=== PATIENT | male | born 1970 | race Caucasian/White ===

== ENCOUNTER 2020-11-14 06:24 | Outpatient (CLI) | payer MEDICAID | END 2020-11-14 06:25 | disposition critical access hospital (66) | LOC: EMS 06:24 | DX: R06.02 Shortness of breath (principal); R07.1 Chest pain on breathing | CPT/HCPCS: A0425; A0429 ==

== ENCOUNTER 2020-11-14 06:52 | Inpatient (IN) | payer MEDICAID ==
--- NOTE | 2020-11-14 07:29 | ED Physician Documentation ---
PD HPI DYSPNEA - Stated complaint Stated Complaint: SOA - Chief complaint Chief Complaint: Resp - History obtained from History obtained from: Patient - History of Present Illness Timing - onset: Enter time (1400), Yesterday Timing - onset during: Rest Timing - duration: Days (1) Timing - details: Gradual onset, Still present Inciting event(s): No: Out of meds, URI Improved by: O2 Worsened by: Exertion, Coughing Associated symptoms: Chest pain / discomfort. No: Fever, Cough, Hemoptysis, Wheezing, Palpitations, Diaphoresis, Bilateral edema, Unilateral edema Similar symptoms before: Diagnosis (panic attack) Recently seen: Not recently seen - Additional information Additional information: Previously well 50-year-old male was taken a nap yesterday when he woke up 2:00 in the afternoon he had some pain under his left scapula and he felt like may be a pinched nerve in his back. He noted he had some difficulty getting a breath. He has developed some radiation of the pain up into his neck and jaw and left shoulder and he has exertional dyspnea. He denies any recent confinement or prolonged travel or recent illness. He is a former smoker.Denies any wheezing or recent upper respiratory tract infection. Had first dose of Moderna 2 weeks ago. Review of Systems Constitutional: denies: Fever Eyes: denies: Decreased vision Ears: denies: Ear pain Nose: denies: Rhinorrhea / runny nose, Congestion Throat: reports: Dental pain / toothache Cardiac: reports: Chest pain / pressure. denies: Palpitations, Pedal edema Respiratory: reports: Dyspnea. denies: Cough, Hemoptysis, Wheezing GI: reports: Nausea (morning). denies: Abdominal Pain, Vomiting, Constipation, Diarrhea : denies: Dysuria, Frequency Skin: denies: Rash Musculoskeletal: reports: Neck pain, Back pain. denies: Extremity pain Neurologic: denies: Generalized weakness, Focal weakness, Numbness PD PAST MEDICAL HISTORY - Present Medications Home Medications: Ambulatory Orders Medication Instructions Recorded Confirmed No Known Home Medications 11/14/20 11/14/20 - Allergies Allergies/Adverse Reactions: Allergies Allergy/AdvReac Type Severity Reaction Status Date / Time No Known Drug Allergies Allergy Verified 11/14/20 06:56 PD ED PE NORMAL - Vitals Vital signs reviewed: Yes (hypertensive ) - General General: Alert and oriented X 3, No acute distress, Well developed/nourished - HEENT HEENT: Atraumatic, PERRL, EOMI - Neck Neck: Supple, no meningeal sign, No bony TTP - Cardiac Cardiac: RRR, No murmur - Respiratory Respiratory: No respiratory distress, Other (diminished breath sounds on left only compared to the right. 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, No motor deficit, No sensory deficit, Normal speech Eye Opening: Spontaneous Motor: Obeys Commands Verbal: Oriented GCS Score: 15 - Psych Psych: Normal mood, Normal affect Results - Vitals Vitals: Vital Signs - 24 hr 11/14/20 11/14/20 11/14/20 06:56 07:04 07:45 Temperature 36.6 C 36.7 C Heart Rate 100 106 H 101 H Respiratory 20 12 26 H Rate Blood Pressure 124/102 H 137/95 H O2 Saturation 100 97 100 11/14/20 11/14/20 11/14/20 08:01 08:30 09:00 Temperature Heart Rate 106 H 105 H 101 H Respiratory 13 13 11 L Rate Blood Pressure 151/108 H 151/123 H 159/111 H O2 Saturation 100 96 99 11/14/20 09:37 Temperature Heart Rate 111 H Respiratory 15 Rate Blood Pressure 132/107 H O2 Saturation 98 Oxygen O2 Source Nasal cannula Oxygen Flow Rate 2 - EKG (time done) 0709 Rate: Rate (enter#) (98) Rhythm: LAE, CONNIE Ischemia: ST elevation c/w repol (isolated to V3) Compare to prior EKG: Old EKG unavailable Computer interpretation: Agree with computer - Labs Labs: Laboratory Tests 11/14/20 11/14/20 11/14/20 07:16 07:16 07:16 WBC 12.1 H RBC 6.02 Hgb 16.5 Hct 50.3 MCV 83.6 MCH 27.4 MCHC 32.8 RDW 13.0 Plt Count 243 MPV 9.6 Neut # (Auto) 9.9 H Lymph # (Auto) 1.2 L Sibley # (Auto) 0.7 Eos # (Auto) 0.1 Baso # (Auto) 0.1 Absolute Nucleated RBC 0.00 Nucleated RBC % 0.0 D-Dimer 212.1 Sodium 136 Potassium 3.9 Chloride 105 Carbon Dioxide 23 Anion Gap 8.0 BUN 9 Creatinine 0.9 Estimated GFR (MDRD) 90 Glucose 125 H Calcium 9.3 Total Bilirubin 1.1 H AST 17 ALT 17 Alkaline Phosphatase 80 Troponin I High Sens Total Protein 7.2 Albumin 4.4 Globulin 2.8 Albumin/Globulin Ratio 1.6 Lipase 122 H Nasal Adenovirus (PCR) Nasal B. parapertussis DNA (PCR) Nasal Coronavir 229E PCR Nasal Coronavir HKU1 PCR Nasal Coronavir NL63 PCR Nasal Coronavir OC43 PCR Nasal Enterovir/Rhinovir PCR Nasal Influenza B PCR Nasal Influenza A PCR Nasal Parainfluen 1 PCR Nasal Parainfluen 2 PCR Nasal Parainfluen 3 PCR Nasal Parainfluen 4 PCR Nasal RSV (PCR) Nasal B.pertussis DNA PCR Nasal C.pneumoniae (PCR) Boy Human Metapneumo PCR Nasal M.pneumoniae (PCR) Nasal SARS-CoV-2 (PCR) 11/14/20 11/14/20 07:16 07:31 WBC RBC Hgb Hct MCV MCH MCHC RDW Plt Count MPV Neut # (Auto) Lymph # (Auto) Sibley # (Auto) Eos # (Auto) Baso # (Auto) Absolute Nucleated RBC Nucleated RBC % D-Dimer Sodium Potassium Chloride Carbon Dioxide Anion Gap BUN Creatinine Estimated GFR (MDRD) Glucose Calcium Total Bilirubin AST ALT Alkaline Phosphatase Troponin I High Sens 4.7 Total Protein Albumin Globulin Albumin/Globulin Ratio Lipase Nasal Adenovirus (PCR) NOT DETECTED Nasal B. parapertussis DNA (PCR) NOT DETECTED Nasal Coronavir 229E PCR NOT DETECTED Nasal Coronavir HKU1 PCR NOT DETECTED Nasal Coronavir NL63 PCR NOT DETECTED Nasal Coronavir OC43 PCR NOT DETECTED Nasal Enterovir/Rhinovir PCR NOT DETECTED Nasal Influenza B PCR NOT DETECTED Nasal Influenza A PCR NOT DETECTED Nasal Parainfluen 1 PCR NOT DETECTED Nasal Parainfluen 2 PCR NOT DETECTED Nasal Parainfluen 3 PCR NOT DETECTED Nasal Parainfluen 4 PCR NOT DETECTED Nasal RSV (PCR) NOT DETECTED Nasal B.pertussis DNA PCR NOT DETECTED Nasal C.pneumoniae (PCR) NOT DETECTED Boy Human Metapneumo PCR NOT DETECTED Nasal M.pneumoniae (PCR) NOT DETECTED Nasal SARS-CoV-2 (PCR) NOT DETECTED - Rads (name of study) chest Radiology: Prelim report reviewed (Impression: Large left-sided pneumothorax with a rightward deviation of the mediastinum concerning for tension pneumothorax.), EMP read indepedently, See rad report Procedures - Bedside sono Bedside sono by EMP: With the use of bedside ultrasound the heart is imaged from the xiphoid and there is a normal four chamber view of the heart, without evidence of pericardial effusion. - IVC sono (time) 0700 Bedside IVC sono: IVC measures (cm) (1.88), Euvolemia PD MEDICAL DECISION MAKING - ED course Complexity details: considered differential, d/w patient ED course: 50-year-old male with acute onset of shortness of breath yesterday has a pneumothorax on the left side and this appears spontaneous. Patient does not otherwise appear ill. Dr. Armenta is consulted in the case and will come to the emergency department to place a chest tube. The patient develops nausea and vomits and is administered IV zofran. His nausea resolves. The patient admits that nausea is his usual response to stress and he does not feel more short of breath or more chest pain associated. His heart rate increased dramatically and I became concerned about tension and a repeat chest was obtained, the patient's symptoms resolved and vitals improved and the chest again demonstrated the pneumo. Departure - Departure Disposition: 66 [facility] DC/Xfer Clinical Impression: Pneumothorax on left Condition: Stable
[2020-11-14 07:38] LABS: ALBUMIN 4.4 g/dL (3.2-5.5); ALBUMIN/GLOBULIN RATIO 1.6 (1.0-2.2); BILIRUBIN,TOTAL 1.1 mg/dL (0.2-1.0); CALCIUM 9.3 mg/dL (8.5-10.3); CREATININE 0.9 mg/dL (0.6-1.2); POTASSIUM 3.9 mmol/L (3.5-5.0); TOTAL PROTEIN 7.2 g/dL (6.7-8.2)
[2020-11-14 07:42] LABS: BASOPHILS # (AUTO) 0.1 10^3/uL (0.0-0.1); BASOPHILS % (AUTO) 0.4 %; EOSINOPHILS # (AUTO) 0.1 10^3/uL (0.0-0.7); EOSINOPHILS % (AUTO) 0.6 %; HCT - HEMATOCRIT 50.3 % (42.0-52.0); HGB - HEMOGLOBIN 16.5 g/dL (14.0-18.0); LYMPHOCYTES # (AUTO) 1.2 10^3/uL (1.5-3.5); LYMPHOCYTES % (AUTO) 10.1 %; MEAN CORPUSCULAR HEMOGLOBIN 27.4 pg (27.0-31.0); MEAN CORPUSCULAR HGB CONC 32.8 g/dL (32.0-36.0); MEAN CORPUSCULAR VOLUME 83.6 fL (80.0-94.0); MEAN PLATELET VOLUME 9.6 fL (7.4-11.4); MONOCYTES # (AUTO) 0.7 10^3/uL (0.0-1.0); MONOCYTES % (AUTO) 5.7 %; NEUTROPHILS # (AUTO) 9.9 10^3/uL (1.5-6.6); NEUTROPHILS % (AUTO) 81.6 %; PLT - PLATELET COUNT 243 10^3/uL (130-450); RED BLOOD COUNT 6.02 10^6/uL (4.70-6.10); WHITE BLOOD COUNT 12.1 x10^3/uL (4.8-10.8)
[2020-11-14] MEDS ORDERED: LORazepam 2 MG/ML VIAL IVP STA (07:49)
--- NOTE | 2020-11-14 08:14 | XRAY Report ---
PROCEDURE: Chest 1 View X-Ray INDICATIONS: chest pain TECHNIQUE: 2 frontal views of the chest were acquired. COMPARISON: None FINDINGS: Surgical changes and devices: Overlying EKG wires. Lungs and pleura: There is a large left-sided pleural effusion with collapse of the left lung. Mediastinum: There is rightward deviation of the mediastinum. Heart size appears within normal limits . Bones and chest wall: No suspicious bony lesions. Overlying soft tissues appear unremarkable. IMPRESSION: Large left-sided pneumothorax with rightward deviation of the mediastinum concerning for tension pneu mothorax. Discussed over the telephone with the ordering provider Dr. Christopher Cox by Dr. Gurwinder Odom at approx imately 0710 hours [place] standard time on 11/14/2020. Reviewed by: Gurwinder Odom DO on 11/14/2020 7:13 AM RUBEN Approved by: Gurwinder Odom DO on 11/14/2020 7:13 AM RUBEN Station ID: [id number]
--- NOTE | 2020-11-14 08:15 | XRAY Report ---
PROCEDURE: Chest 1 View X-Ray INDICATIONS: CHEST PAIN TECHNIQUE: One lateral view of the chest was acquired. COMPARISON: Examination frontal chest radiographs FINDINGS: Surgical changes and devices: Overlying EKG wires Lungs and pleura: Large left-sided pneumothorax is again noted. No additional findings. Mediastinum: Heart size appears within normal limits. Rightward mediastinal shift W. Marielos comparison exam Bones and chest wall: No suspicious bony lesions. Overlying soft tissues appear unremarkable. IMPRESSION: Large left-sided pneumothorax again identified. Reviewed by: Gurwinder Odom DO on 11/14/2020 7:14 AM RUBEN Approved by: Gurwinder Odom DO on 11/14/2020 7:14 AM RUBEN Station ID: [id number]
[2020-11-14 08:53] LABS: B. PARAPERTUSSIS- RESP PCR PAN NOT DETECTED; B. PERTUSSIS- RESP PCR PANEL NOT DETECTED; C. PNEUMONIAE- RESP PCR PANEL NOT DETECTED; CORONAVIRUS 229E-RESP PCR NOT DETECTED; CORONAVIRUS HKU1-RESP PCR NOT DETECTED; CORONAVIRUS NL63-RESP PCR NOT DETECTED; CORONAVIRUS OC43-RESP PCR NOT DETECTED; HUMAN METAPNEUMOVIRUS NOT DETECTED; INFLUENZA A- RESP PCR PANEL NOT DETECTED; INFLUENZA B - RESP PCR PANEL NOT DETECTED; M. PNEUMONIAE- RESP PCR PANEL NOT DETECTED; PARAINFLUENZA VIRUS 1 NOT DETECTED; PARAINFLUENZA VIRUS 2 NOT DETECTED; PARAINFLUENZA VIRUS 3 NOT DETECTED; PARAINFLUENZA VIRUS 4 NOT DETECTED; RHINOVIRUS/ENTEROVIRUS NOT DETECTED; RSV- RESP PCR PANEL NOT DETECTED; SARS-CoV-2 -RESP PCR PANEL NOT DETECTED
[2020-11-14] MEDS ORDERED: ONDANSETRON 4 MG/2 ML VIAL IVP STA (09:10)
[2020-11-14] MEDS ORDERED: BUFFERED LIDOCAINE 10 ML SYRINGE SUBQ STA (09:27)
[2020-11-14] MEDS ORDERED: MIDAZOLAM 2 MG/2 ML VIAL IVP STA (09:27)
[2020-11-14] MEDS ORDERED: HYDROmorphone 1 MG/ML CARPUJECT IVP STA (09:28)
--- NOTE | 2020-11-14 09:48 | XRAY Report ---
PROCEDURE: Chest 1 View X-Ray INDICATIONS: Increased N/V with left Pneumothorax TECHNIQUE: One view of the chest was acquired. COMPARISON: Same day chest radiographs FINDINGS: Surgical changes and devices: None. Lungs and pleura: Large left-sided pneumothorax with near complete collapse of the left lung is again noted. Right lung remains clear. Mediastinum: Unchanged rightward mediastinal shift. Bones and chest wall: No suspicious bony lesions. Overlying soft tissues appear unremarkable. IMPRESSION: Grossly unchanged large left-sided pneumothorax with rightward mediastinal shift suggestive of tensio n etiology. Recommend emergent surgical referral. Reviewed by: Gurwinder Odom DO on 11/14/2020 8:47 AM RUBEN Approved by: Gurwinder Odom DO on 11/14/2020 8:47 AM RUBEN Station ID: [id number]
--- NOTE | 2020-11-14 11:19 | XRAY Report ---
PROCEDURE: Chest for Line Placement INDICATIONS: POST CHEST TUBE PLACEMENT TECHNIQUE: One view of the chest was acquired. COMPARISON: Same day chest radiograph FINDINGS: Surgical changes and devices: Left-sided thoracostomy tube is noted overlying the left upper chest wa ll with the tip adjacent to the superior mediastinum. Lungs and pleura: Interval decrease in size of previously noted left-sided pneumothorax. There is a s mall persistent pneumothorax with the apex measuring approximately 1.6 cm. Linear densities at the mi d and lower left lung likely representing atelectasis. Mediastinum: Mediastinal contours appear normal. Heart size is normal. Mediastinal shift has resol gonzalo. Bones and chest wall: No suspicious bony lesions. Overlying soft tissues appear unremarkable. IMPRESSION: Status post left-sided thoracostomy tube insertion with tip overlying the superior aspect of the medi astinum. Small apical pneumothorax persists. There is interval resolution of previously noted mediast inal shift. Left sided atelectasis. Reviewed by: Gurwinder Odom DO on 11/14/2020 10:17 AM RUBEN Approved by: Gurwinder Odom DO on 11/14/2020 10:17 AM RUBEN Station ID: [id number]
--- NOTE | 2020-11-14 11:24 | SURGERY HX AND PHYSICAL(T) ---
Surgical History & Physical - Chief Complaint/HPI Chief Complaint: Spontaneous pneumothorax left with dyspnea History of Present Illness: 50-year-old male presenting for spontaneous LEFT pneumothorax, symptomatic. Reports having suddenly acute onset shortness of breath at 2 PM yesterday. Has not been able to do anything significant in the interim. Presents to the emergency room for evaluation. No prior episodes. Patient historic smoker however no active tobacco use. No prior chest wall radiation. No recent travel. No recent trauma.. Significant history for multiple cancers including colon cancer in the patient's family history. Notable past surgical history to include none. Patient denies change in bowel function, denies bleeding per rectum, and also denies reflux associated symptoms. Patient does not use tobacco but has used in the past. Patient has a history of alcohol use but denies any associated abuse. He denies CPAP or history of sleep apnea. Denies history of asthma, emphysema, COPD. No history of heart attack or stroke. Patient takes no systemic anticoa gulation. Endoscopic history includes colonoscopy at age 41 for high risk screening. The patient was evaluated by the ER noted for plain film with significant loss of lung volume for which surgical consultation was obtained and requested. - PMH/PSH/Social Hx Smoking Status: Former smoker Does the pt drink ETOH?: Yes Frequency: Occasional Does the pt have substance abuse?: Yes Substance Use and Type: Marijuana - Home Meds and Allergies Home Medications: No Known Home Medications 11/14/20 Allergies/Adverse Reactions: Allergies Allergy/AdvReac Type Severity Reaction Status Date / Time No Known Drug Allergies Allergy Verified 11/14/20 06:56 - Review of Systems Constitutional: Fatigue, Malaise, Weakness Respiratory: Shortness of breath, Cough Gastrointestinal: Nausea - Vital Signs Heart Rate: 92 Blood Pressure: 136/101 Temperature: 36.7 C Respiratory Rate: 21 O2 Saturation: 96 Weight (kg): 80.3 kg Height: 1.8 m - Physical Exam Comments/Other: Patient alert awake and oriented x3 No acute distress resting comfortably in bed Lungs clear to auscultation across right lung jeter; left lung absent any appreciable sounds across the entirety of jeter by auscultation. Radial pulses palpable bilaterally with good capillary refill Abdomen soft nontender nondistended no rebound no guarding Moving all extremities with no sensorimotor deficits Cranial nerves II through XII grossly intact - Patient Review Patient Review: Problems were reviewed with the patient during this visit. Medications were reviewed with the patient during this visit. Allergies were reviewed this patient during this visit. Pertinent Tests Reviewed: All pertitent test for this patient were reviewed. - Assessment & Plan Assessment and Plan: 50-year-old with spontaneous left pneumothorax. Noted on plain film and CT currently not available. Symptomatic. We will proceed with left tube thoracostomy. (1) GI - post procedure will advance diet. GI prophylaxis. Opiate sparing analgesia. (2) SURGERY -proceed with left tube thoracostomy placement. Serial x-rays. (3) Renal/Lytes - continue IVF. Renal indices within normal limits. (4) Respiratory - O2 as necessary. Continue nebulizers. Continue IS. Chest XR. (5) Heme - Will continue with DVT ppx. H/H stable. (6) Cardiovascular - HD acceptable. (7) Neuro - Opiate sparring analgesia. Antispasmodics with Robaxin. Toradol. Neuropathic agents.
[2020-11-14] MEDS ORDERED: METOCLOPRAMIDE 10 MG/2 ML VIAL IVP PRN (11:25)
[2020-11-14] MEDS ORDERED: polyethylene glycoL 3350 17 GM PACKET PO PRN (11:25)
[2020-11-14] MEDS ORDERED: ONDANSETRON 4 MG/2 ML VIAL IVP PRN (11:25)
--- NOTE | 2020-11-14 11:25 | OPERATIVE REPORT ---
Operative Report - General Admit Date: 11/14/20 Procedure Date: 11/14/20 Planned Procedure: Left tube thoracostomy, anterior, placement Intercostal rib block. Pre-Op Diagnosis: Indications: Symptomatic left pneumothorax Procedure Performed: Same Post Op Diagnosis: Same - Procedure Note Primary Surgeon: Kathi Secondary Surgeon: Mason Anesthesia Provider: None Pathology: None Drain/Tube Type: Other (See below) Indications: See H&P Findings: See below. Complications: None - Other Other Information/Narrative: Left tube thoracostomy, anterior, placement Indications: Symptomatic left pneumothorax Complications: none Findings: Successful placement of left tube thoracostomy, with associated resolution by plain chest radiography Estimated blood loss: none Specimens removed: None Anesthesia used: Half a milligram of Dilaudid and a milligram of Versed Drains: other (8 Com[place]an [place]an left tube/pigtail thoracostomy; to pleuravac) Procedure details: 50-year-old male with spontaneous left pneumothorax with significant lung volume loss to nearly 75%. No CT scan available. No significant pre-existing conditions; surgery was called in order for placement of a pigtail. Patient was obtain for informed consent with all questions answered and this is documented in the permanent medical record. Patient was confirmed for a left pneumothorax by x-ray. A timeout was called and agreed to by all of the room. The left chest was prepped and draped in the usual sterile fashion. Patient was reevaluated for imaging and planned for access anteriorly and apically towards avoiding any injury. This area was locally instilled with 1% lidocaine and every block was performed as well. At this time after performing local rib block and entering the thoracic cavity there was aspirated air clearly confirming the pneumothorax. At this time a percutaneous pigtail 8 Comoran kit was used with the introducer needle threaded through the pigtail. This was inserted through the anesthetized tissue and slowly passed above the rib without any complications. The patient had the immediate improvement in respiratory status with decreased dyspnea. Postop procedural Chest CXR was obtained and showed interval improvement in the patient's large left pneumothorax. The chest tube system was secured with two sutures in the manner of a drain stitch after locally anesthetized. Patient tolerated procedure well for which there was no complication I was present for the entirety of this operative intervention. All counts correct. Silk tape was placed to secure along with a mesenteric dressing.
[2020-11-14] MEDS ORDERED: ALBUTEROL NEB 2.5 MG/3 ML INH PRN (11:34)
[2020-11-14] MEDS ORDERED: LACTATED RINGERS 1,000 ML IV SCH (12:00)
[2020-11-14] MEDS: ACETAMINOPHEN 1,000 MG/100 ML 100 ML IV SCH ×2 (13:19→19:58)
[2020-11-14] MEDS: methocarbamoL 500 MG TABLET PO SCH ×2 (13:20→17:34)
[2020-11-14] MEDS: D5NS W/20 MEQ KCL 1,000 ML IV SCH ×2 (13:20→22:08)
[2020-11-14] MEDS: KETOROLAC 30 MG/ML VIAL IVP SCH ×2 (14:22→17:33)
[2020-11-14] MEDS ORDERED: IPRATROPIUM 0.2 MG/ML NEB INH SCH (15:00)
[2020-11-14] MEDS ORDERED: IPRATROPIUM 0.2 MG/ML NEB INH PRN (15:24)
[2020-11-14] MEDS: HYDROmorphone 0.5 MG/0.5 ML SYRINGE IVP PRN (15:30)
[2020-11-14] MEDS: oxyCODONE 5 MG TABLET PO PRN (18:15)
[2020-11-14] MEDS: DOCUSATE SODIUM 100 MG CAPSULE PO SCH (19:58)
[2020-11-14] MEDS: polyethylene glycoL 3350 17 GM PACKET PO SCH (19:58)
[2020-11-15] MEDS: KETOROLAC 30 MG/ML VIAL IVP SCH ×5 (01:52→23:55)
[2020-11-15] MEDS: methocarbamoL 500 MG TABLET PO SCH ×5 (01:53→23:55)
[2020-11-15] MEDS: oxyCODONE 5 MG TABLET PO PRN ×2 (01:53→21:34)
[2020-11-15 05:10] LABS: BASOPHILS % (AUTO) 0.4 %; EOSINOPHILS # (AUTO) 0.1 10^3/uL (0.0-0.7); EOSINOPHILS % (AUTO) 1.7 %; HCT - HEMATOCRIT 43.9 % (42.0-52.0); HGB - HEMOGLOBIN 14.1 g/dL (14.0-18.0); LYMPHOCYTES % (AUTO) 25.7 %; MEAN CORPUSCULAR HEMOGLOBIN 27.1 pg (27.0-31.0); MEAN CORPUSCULAR HGB CONC 32.1 g/dL (32.0-36.0); MEAN CORPUSCULAR VOLUME 84.3 fL (80.0-94.0); MEAN PLATELET VOLUME 9.8 fL (7.4-11.4); MONOCYTES # (AUTO) 0.6 10^3/uL (0.0-1.0); MONOCYTES % (AUTO) 8.2 %; NEUTROPHILS # (AUTO) 4.8 10^3/uL (1.5-6.6); NEUTROPHILS % (AUTO) 63.6 %; PLT - PLATELET COUNT 202 10^3/uL (130-450); RED BLOOD COUNT 5.21 10^6/uL (4.70-6.10); RED CELL DISTRIBUTION WIDTH 12.8 % (12.0-15.0); WHITE BLOOD COUNT 7.6 x10^3/uL (4.8-10.8)
[2020-11-15] MEDS: ACETAMINOPHEN 1,000 MG/100 ML 100 ML IV SCH (05:15)
[2020-11-15 05:21] LABS: ALBUMIN 3.4 g/dL (3.2-5.5); ALBUMIN/GLOBULIN RATIO 1.4 (1.0-2.2); BILIRUBIN,TOTAL 2.1 mg/dL (0.2-1.0); CALCIUM 8.5 mg/dL (8.5-10.3); POTASSIUM 4.5 mmol/L (3.5-5.0); TOTAL PROTEIN 5.9 g/dL (6.7-8.2)
[2020-11-15] MEDS: D5NS W/20 MEQ KCL 1,000 ML IV SCH ×3 (06:19→22:27)
[2020-11-15] MEDS: PANTOPRAZOLE 40 MG TABLET PO SCH (06:20)
[2020-11-15] MEDS ORDERED: IOPAMIDOL-300 100 ML VIAL ONE (07:30)
[2020-11-15] MEDS: polyethylene glycoL 3350 17 GM PACKET PO SCH ×2 (08:31→20:42)
[2020-11-15] MEDS: DOCUSATE SODIUM 100 MG CAPSULE PO SCH ×2 (08:32→20:42)
[2020-11-15] MEDS: ENOXAPARIN 40 MG/0.4 ML SYRINGE SUBQ SCH (08:32)
--- NOTE | 2020-11-15 10:29 | PHARMACY PROGRESS NOTE ---
- Best Possible Medication History Admit Date and Time: 11/14/20 1130 Processed by: Pharmacy Medication History completed: Yes Patient Interview: Completed As the person ultimately responsible for medication therapy, providers are able to order a medication from an existing home medication list in [facility] via the "Reconcile Routine" prior to Confirmation of that medication by business support. Such practice is discouraged except when the physician, in their clinical lulu gment, deems that a medical need exists for a medication without regard to previous use.
[2020-11-15] MEDS ORDERED: IOPAMIDOL-300 100 ML VIAL IVP ONE (11:39)
--- NOTE | 2020-11-15 14:09 | CT Report ---
PROCEDURE: CHEST W INDICATIONS: Pneumothorax CONTRAST: IV CONTRAST: Isovue 300 ml: 100 PO CONTRAST: *NO PO CONTRAST TECHNIQUE: After the administration of intravenous contrast, 5 mm thick sections acquired from the pulmonary api uche to the posterior costophrenic angles. 7 mm thick coronal MIP reformats were acquired. For radia tion dose reduction, the following was used: automated exposure control, adjustment of mA and/or kV according to patient size. COMPARISON: Chest radiographs dated November 14, 2020 FINDINGS: Image quality: Excellent. Lungs and pleura: Moderate to large left-sided pneumothorax is again identified. This is most promine nt at the lung base. Chest tube is noted extending from the superior left chest wall and lies along t he anterior surface of the lung. There is moderate predominantly centrilobular emphysematous changes. There is groundglass opacities noted throughout the left upper lobe with more focal regions inferior ly likely representing atelectasis from partial collapse. Mediastinum: Heart size is normal. No pericardial effusion. No mediastinal or hilar adenopathy by size criteria. Thoracic aorta and central pulmonary arteries are normal in size. Esophagus is christie l in caliber. No hiatal hernia. Bones and chest wall: No suspicious bony lesions. No vertebral body compression fractures. No axil dale or supraclavicular adenopathy by size criteria. Thyroid gland is unremarkable. Abdomen: Visualized upper abdominal solid organs appear normal. Upper abdominal bowel loops are nor mal in caliber. IMPRESSION: Moderate to large left-sided pneumothorax remains status post chest tube insertion. This is most prom inent along the inferior aspect. Moderate predominantly centrilobular emphysematous changes. Groundglass opacities of the left upper lobe with more focal regions of increased opacity likely repr esenting atelectasis from partial collapse. Reexpansion pulmonary edema and infectious processes with in the differential. Reviewed by: Gurwinder Odom DO on 11/15/2020 1:08 PM RUBEN Approved by: Gurwinder Odom DO on 11/15/2020 1:08 PM RUBEN Station ID: [id number]
--- NOTE | 2020-11-15 15:03 | PROVIDER PROGRESS NOTE ---
Progress Note Subjective Hospital day #2 admitted for spontaneous pneumothorax. CT imaging appreciated. See below. Objective Afebrile hemodynamically acceptable General Appearance: positive: No acute distress Eyes Bilateral: positive: Normal inspection ENT: positive: ENT inspection nml Neck: positive: Nml inspection Respiratory: positive: Chest non-tender, No respiratory distress, Breath sounds nml. negative: Wheezes, Rales, Rhonchi Cardiovascular: positive: Regular rate & rhythm Abdomen: positive: No distention, Other. negative: Guarding, Rebound Extremities: positive: Non-tender, Full ROM, Nml appearance Neurologic/Psychiatric: positive: Oriented x3, CN's nml (2-12) Impression CT scan November 15, 2020: 1. Moderate to left large left-sided pneumothorax remains status post chest tube insertion. This most prominent along the inferior aspect. 2. Moderate predominantly centrilobular emphysematous change. 3. Groundglass opacities of the left upper lobe with more focal regions of increased opacity representing atelectasis from partial collapse. Reexpansion p ulmonary edema and infectious process within the differential. Impression/Plan (1) GI - bowel regimen. GI ppx. (2) SURGERY - Status post tube thoracostomy left chest. Persistent pneumothorax while on waterseal. May need chemical and/or mechanical pleurodesis however will proceed with continuous suction and oxygen supplementation to optimize. Daily plain chest radiography. (3) Renal/Lytes - continue IVF. Renal indices stable. Continue to trend. (4) Respiratory - Status post tube thoracostomy left chest. Persistent pneumothorax while on waterseal. May need chemical and/or mechanical pleurodesis however will proceed with continuous suction and oxygen supplementation to optimize. Daily plain chest radiography. Continue IS. Ordered nebulizers. (5) Heme - Will continue with DVT ppx. H/H stable. (6) Cardiovascular - HD acceptable. (7) Neuro - Opiate sparring analgesia. Antispasmodics with Robaxin. (8) PT OT
[2020-11-15] MEDS: HYDROmorphone 0.5 MG/0.5 ML SYRINGE IVP PRN (23:56)
[2020-11-16 05:21] LABS: BASOPHILS % (AUTO) 0.4 %; EOSINOPHILS # (AUTO) 0.2 10^3/uL (0.0-0.7); EOSINOPHILS % (AUTO) 2.6 %; HCT - HEMATOCRIT 42.9 % (42.0-52.0); LYMPHOCYTES % (AUTO) 25.6 %; MEAN CORPUSCULAR HEMOGLOBIN 27.6 pg (27.0-31.0); MEAN CORPUSCULAR HGB CONC 32.6 g/dL (32.0-36.0); MEAN CORPUSCULAR VOLUME 84.6 fL (80.0-94.0); MONOCYTES # (AUTO) 0.5 10^3/uL (0.0-1.0); MONOCYTES % (AUTO) 7.1 %; NEUTROPHILS # (AUTO) 4.9 10^3/uL (1.5-6.6); NEUTROPHILS % (AUTO) 63.9 %; PLT - PLATELET COUNT 184 10^3/uL (130-450); RED BLOOD COUNT 5.07 10^6/uL (4.70-6.10); RED CELL DISTRIBUTION WIDTH 12.8 % (12.0-15.0); WHITE BLOOD COUNT 7.6 x10^3/uL (4.8-10.8)
[2020-11-16 05:37] LABS: ALBUMIN 3.5 g/dL (3.2-5.5); ALBUMIN/GLOBULIN RATIO 1.5 (1.0-2.2); BILIRUBIN,TOTAL 1.7 mg/dL (0.2-1.0); CALCIUM 8.5 mg/dL (8.5-10.3); CREATININE 0.8 mg/dL (0.6-1.2); POTASSIUM 4.3 mmol/L (3.5-5.0); TOTAL PROTEIN 5.9 g/dL (6.7-8.2)
[2020-11-16] MEDS: KETOROLAC 30 MG/ML VIAL IVP SCH ×3 (06:12→17:32)
[2020-11-16] MEDS: methocarbamoL 500 MG TABLET PO SCH ×3 (06:12→17:32)
[2020-11-16] MEDS: PANTOPRAZOLE 40 MG TABLET PO SCH (06:12)
[2020-11-16] MEDS: D5NS W/20 MEQ KCL 1,000 ML IV SCH ×3 (06:16→21:20)
[2020-11-16] MEDS: DOCUSATE SODIUM 100 MG CAPSULE PO SCH ×2 (08:42→20:18)
[2020-11-16] MEDS: ENOXAPARIN 40 MG/0.4 ML SYRINGE SUBQ SCH (08:42)
[2020-11-16] MEDS: polyethylene glycoL 3350 17 GM PACKET PO SCH ×2 (08:45→20:18)
[2020-11-16] MEDS: HYDROmorphone 0.5 MG/0.5 ML SYRINGE IVP PRN ×2 (14:01→21:58)
--- NOTE | 2020-11-16 15:48 | PROVIDER PROGRESS NOTE ---
Progress Note Subjective Hospital day #3 admitted for spontaneous pneumothorax. Objective Afebrile hemodynamically acceptable General Appearance: positive: No acute distress Eyes Bilateral: positive: Normal inspection ENT: positive: ENT inspection nml Neck: positive: Nml inspection Respiratory: positive: Chest non-tender, No respiratory distress, Breath sounds nml. negative: Wheezes, Rales, Rhonchi Cardiovascular: positive: Regular rate & rhythm Abdomen: positive: No distention, Other. negative: Guarding, Rebound Extremities: positive: Non-tender, Full ROM, Nml appearance Neurologic/Psychiatric: positive: Oriented x3, CN's nml (2-12) Impression CT scan November 15, 2020: 1. Moderate to left large left-sided pneumothorax remains status post chest tube insertion. This most prominent along the inferior aspect. 2. Moderate predominantly centrilobular emphysematous change. 3. Groundglass opacities of the left upper lobe with more focal regions of increased opacity representing atelectasis from partial collapse. Reexpansion pulmonary edema and infectious process within the differential. Impression/Plan (1) GI - bowel regimen. GI ppx. (2) SURGERY - Status post tube thoracostomy left chest. Persistent pneumothorax while on waterseal. May need chemical and/or mechanical pleurodesis however will proceed with continuous suction and oxygen supplementation to optimize. Daily plain chest radiography. (3) Renal/Lytes - continue IVF. Renal indices stable. Continue to trend. (4) Respiratory - Status post tube thoracostomy left chest. Persistent pneumothorax while on waterseal. May need chemical and/or mechanical pleurodesis however will proceed with continuous suction and oxygen supplementation to optimize. Daily plain chest radiography. Continue IS. Ordered nebulizers. (5) Heme - Will continue with DVT ppx. H/H stable. (6) Cardiovascular - HD acceptable. (7) Neuro - Opiate sparring analgesia. Antispasmodics with Robaxin. (8) PT OT
[2020-11-17] MEDS: methocarbamoL 500 MG TABLET PO SCH ×5 (00:10→23:48)
[2020-11-17] MEDS: KETOROLAC 30 MG/ML VIAL IVP SCH ×5 (00:10→23:49)
[2020-11-17] MEDS: D5NS W/20 MEQ KCL 1,000 ML IV SCH ×3 (05:08→21:11)
[2020-11-17 05:24] LABS: BASOPHILS % (AUTO) 0.4 %; EOSINOPHILS # (AUTO) 0.2 10^3/uL (0.0-0.7); EOSINOPHILS % (AUTO) 2.4 %; HCT - HEMATOCRIT 42.4 % (42.0-52.0); HGB - HEMOGLOBIN 14.3 g/dL (14.0-18.0); LYMPHOCYTES # (AUTO) 1.4 10^3/uL (1.5-3.5); LYMPHOCYTES % (AUTO) 15.5 %; MEAN CORPUSCULAR HGB CONC 33.7 g/dL (32.0-36.0); MEAN CORPUSCULAR VOLUME 83.1 fL (80.0-94.0); MEAN PLATELET VOLUME 9.6 fL (7.4-11.4); MONOCYTES # (AUTO) 0.7 10^3/uL (0.0-1.0); MONOCYTES % (AUTO) 7.5 %; NEUTROPHILS # (AUTO) 6.7 10^3/uL (1.5-6.6); PLT - PLATELET COUNT 188 10^3/uL (130-450); RED CELL DISTRIBUTION WIDTH 12.6 % (12.0-15.0)
[2020-11-17 05:36] LABS: ALBUMIN 3.4 g/dL (3.2-5.5); ALBUMIN/GLOBULIN RATIO 1.4 (1.0-2.2); BILIRUBIN,TOTAL 1.3 mg/dL (0.2-1.0); CALCIUM 8.4 mg/dL (8.5-10.3); CREATININE 0.8 mg/dL (0.6-1.2); POTASSIUM 4.2 mmol/L (3.5-5.0); TOTAL PROTEIN 5.9 g/dL (6.7-8.2)
[2020-11-17] MEDS: PANTOPRAZOLE 40 MG TABLET PO SCH (06:22)
[2020-11-17] MEDS: ENOXAPARIN 40 MG/0.4 ML SYRINGE SUBQ SCH (08:20)
[2020-11-17] MEDS: DOCUSATE SODIUM 100 MG CAPSULE PO SCH ×2 (08:20→19:50)
[2020-11-17] MEDS: polyethylene glycoL 3350 17 GM PACKET PO SCH ×2 (08:20→19:50)
--- NOTE | 2020-11-17 10:38 | XRAY Report ---
PROCEDURE: Chest 1 View X-Ray INDICATIONS: PTX TECHNIQUE: One view of the chest was acquired. COMPARISON: 11/14/2020 at 1025 hours. FINDINGS: Surgical changes and devices: Left-sided pigtail catheter redemonstrated.. Lungs and pleura: Small apical left pneumothorax not significant changed compared to 11/14/2020 at 102 5 hours. No pleural effusions. Lungs are clear. Mediastinum: Mediastinal contours appear normal. Heart size is normal. Bones and chest wall: No suspicious bony lesions. Overlying soft tissues appear unremarkable. IMPRESSION: Persistent small left apical pneumothorax. Reviewed by: Rema Schumacher MD, PhD on 11/17/2020 10:37 AM PDT Approved by: Rema Schumacher MD, PhD on 11/17/2020 10:37 AM PDT Station ID: [id number]
[2020-11-17] MEDS: oxyCODONE 5 MG TABLET PO PRN (21:11)
[2020-11-18] MEDS: D5NS W/20 MEQ KCL 1,000 ML IV SCH ×2 (05:01→13:36)
[2020-11-18 05:17] LABS: BASOPHILS % (AUTO) 0.5 %; EOSINOPHILS # (AUTO) 0.3 10^3/uL (0.0-0.7); EOSINOPHILS % (AUTO) 3.6 %; HGB - HEMOGLOBIN 13.3 g/dL (14.0-18.0); LYMPHOCYTES # (AUTO) 1.8 10^3/uL (1.5-3.5); LYMPHOCYTES % (AUTO) 22.9 %; MEAN CORPUSCULAR HEMOGLOBIN 27.6 pg (27.0-31.0); MEAN CORPUSCULAR HGB CONC 33.3 g/dL (32.0-36.0); MONOCYTES # (AUTO) 0.6 10^3/uL (0.0-1.0); MONOCYTES % (AUTO) 7.4 %; NEUTROPHILS % (AUTO) 65.2 %; PLT - PLATELET COUNT 190 10^3/uL (130-450); RED BLOOD COUNT 4.82 10^6/uL (4.70-6.10); RED CELL DISTRIBUTION WIDTH 12.5 % (12.0-15.0); WHITE BLOOD COUNT 7.7 x10^3/uL (4.8-10.8)
[2020-11-18 05:27] LABS: ALBUMIN 3.3 g/dL (3.2-5.5); ALBUMIN/GLOBULIN RATIO 1.4 (1.0-2.2); ALKALINE PHOSPHATASE 58 IU/L (42-121); ALT ALANINE AMINOTRANSFERASE 11 IU/L (10-60); AST ASPARTATE AMINOTRANSFERASE < 10 IU/L (10-42); BILIRUBIN,TOTAL 0.9 mg/dL (0.2-1.0); BUN - BLOOD UREA NITROGEN 13 mg/dL (6-20); CALCIUM 8.7 mg/dL (8.5-10.3); CARBON DIOXIDE - CO2 28 mmol/L (21-32); CHLORIDE 105 mmol/L (101-111); GFR - MDRD 79 (>89); GLUCOSE 117 mg/dL (70-100); POTASSIUM 4.4 mmol/L (3.5-5.0); SODIUM 139 mmol/L (135-145); TOTAL PROTEIN 5.7 g/dL (6.7-8.2)
[2020-11-18] MEDS: methocarbamoL 500 MG TABLET PO SCH ×4 (06:01→23:45)
[2020-11-18] MEDS: KETOROLAC 30 MG/ML VIAL IVP SCH ×4 (06:02→23:45)
[2020-11-18] MEDS: PANTOPRAZOLE 40 MG TABLET PO SCH (06:02)
[2020-11-18] MEDS: DOCUSATE SODIUM 100 MG CAPSULE PO SCH ×2 (08:32→20:29)
[2020-11-18] MEDS: polyethylene glycoL 3350 17 GM PACKET PO SCH ×2 (08:32→20:29)
[2020-11-18] MEDS: ENOXAPARIN 40 MG/0.4 ML SYRINGE SUBQ SCH (08:32)
--- NOTE | 2020-11-18 15:20 | PROVIDER PROGRESS NOTE ---
Progress Note Subjective Hospital day #4 admitted for spontaneous pneumothorax. Objective Afebrile hemodynamically acceptable General Appearance: positive: No acute distress Eyes Bilateral: positive: Normal inspection ENT: positive: ENT inspection nml Neck: positive: Nml inspection Respiratory: positive: Chest non-tender, No respiratory distress, Breath sounds nml. negative: Wheezes, Rales, Rhonchi Cardiovascular: positive: Regular rate & rhythm Abdomen: positive: No distention, Other. negative: Guarding, Rebound Extremities: positive: Non-tender, Full ROM, Nml appearance Neurologic/Psychiatric: positive: Oriented x3, CN's nml (2-12) Chest tube in place. No complication. Positive air leak noted. Bilateral breath sounds noted on auscultation across all jeter. Impression CT scan November 15, 2020: 1. Moderate to left large left-sided pneumothorax remains status post chest tube insertion. This most prominent along the inferior aspect. 2. Moderate predominantly centrilobular emphysematous change. 3. Groundglass opacities of the left upper lobe with more focal regions of increased opacity representing atelectasis from partial collapse. Reexpansion pulmonary edema and infectious process within the differential. November 17, 2020 plain film radiography impression: Persistent small left apical pneumothorax. Impression/Plan (1) GI - bowel regimen. GI ppx. (2) SURGERY - Status post tube thoracostomy left chest. Small apical pneumothorax on suction. Large pneumothorax on waterseal at the time of CAT scan. May need chemical and/or mechanical pleurodesis however will proceed with continuous suction and oxygen supplementation to optimize. Daily plain chest radiography; next imaging on waterseal. (3) Renal/Lytes - continue IVF. Renal indices stable. Continue to trend. (4) Respiratory - Status post tube thoracostomy left chest. Small apical pneumothorax on suction. Large pneumothorax on waterseal at the time of CAT scan. May need chemical and/or mechanical pleurodesis however will proceed with continuous suction and oxygen supplementation to optimize. Daily plain chest radiography; next imaging on waterseal. Continue IS. Ordered nebulizers. (5) Heme - Will continue with DVT ppx. H/H stable. (6) Cardiovascular - HD acceptable. (7) Neuro - Opiate sparring analgesia. Antispasmodics with Robaxin. (8) PT OT
--- NOTE | 2020-11-18 16:03 | XRAY Report ---
PROCEDURE: Chest 2 View X-Ray INDICATIONS: while off suction/on water seal please TECHNIQUE: 2 view(s) of the chest. COMPARISON: None. FINDINGS: Surgical changes and devices: None. Lungs and pleura: No significant pleural effusions or increase in small residual apical left-sided p neumothorax in this patient with a pneumothorax evacuation device superimposed on the upper left ches t. Pneumothorax. Lungs are clear. Mediastinum: Mediastinal contours are normal. Heart size is normal. Bones and chest wall: No suspicious bony abnormalities. Soft tissues appear unremarkable. IMPRESSION: A small apical 1.4 cm pneumothorax remains at the left upper lobe margin, equivalent to that previously present one day ago. Pulmonary hyperexpansion, severe COPD. Reviewed by: Feng Olson MD on 11/18/2020 4:01 PM PDT Approved by: Feng Olson MD on 11/18/2020 4:01 PM PDT Station ID: [id number]
[2020-11-18] MEDS: oxyCODONE 5 MG TABLET PO PRN (21:06)
[2020-11-19] MEDS: PANTOPRAZOLE 40 MG TABLET PO SCH (05:54)
[2020-11-19] MEDS: KETOROLAC 30 MG/ML VIAL IVP SCH (05:54)
[2020-11-19] MEDS: methocarbamoL 500 MG TABLET PO SCH ×3 (05:54→17:53)
[2020-11-19] MEDS: ENOXAPARIN 40 MG/0.4 ML SYRINGE SUBQ SCH (08:19)
[2020-11-19] MEDS: polyethylene glycoL 3350 17 GM PACKET PO SCH ×2 (08:19→22:19)
[2020-11-19] MEDS: DOCUSATE SODIUM 100 MG CAPSULE PO SCH ×2 (08:19→22:18)
--- NOTE | 2020-11-19 13:12 | PROVIDER PROGRESS NOTE ---
Progress Note Subjective Hospital day #5 admitted for spontaneous pneumothorax. Remains on water seal with imaging per below. Objective Afebrile hemodynamically acceptable General Appearance: positive: No acute distress Eyes Bilateral: positive: Normal inspection ENT: positive: ENT inspection nml Neck: positive: Nml inspection Respiratory: positive: Chest non-tender, No respiratory distress, Breath sounds nml. negative: Wheezes, Rales, Rhonchi Cardiovascular: positive: Regular rate & rhythm Abdomen: positive: No distention, Other. negative: Guarding, Rebound Extremities: positive: Non-tender, Full ROM, Nml appearance Neurologic/Psychiatric: positive: Oriented x3, CN's nml (2-12) Chest tube in place. No complication. Trace air leak noted. Bilateral breath sounds noted on auscultation across all jeter. Impression CT scan November 15, 2020: 1. Moderate to left large left-sided pneumothorax remains status post chest tube insertion. This most prominent along the inferior aspect. 2. Moderate predominantly centrilobular emphysematous change. 3. Groundglass opacities of the left upper lobe with more focal regions of increased opacity representing atelectasis from partial collapse. Reexpansion pulmonary edema and infectious process within the differential. November 17, 2020 plain film radiography impression: Persistent small left apical pneumothorax. Plain film radiography chest x-ray November 19, 2020 impression: 1. Unchanged examination since yesterday as above. Small residual left apical pneumothorax is grossly stable. Impression/Plan (1) GI - bowel regimen. GI ppx. (2) SURGERY - Status post tube thoracostomy left chest. Small apical pneumothorax on WATER SEAL. Large pneumothorax on waterseal at the time of CAT scan. Will leave on water seal and if lung remains expanded will pull tomorrow following repeat CXR. (3) Renal/Lytes - continue IVF. Renal indices stable. Continue to trend. (4) Respiratory - Status post tube thoracostomy left chest. Small apical pn eumothorax on water seal. Continue IS. Ordered nebulizers. Will leave on water seal and if lung remains expanded will pull tomorrow following repeat CXR. Continue supplemental O2. (5) Heme - Will continue with DVT ppx. H/H stable. (6) Cardiovascular - HD acceptable. (7) Neuro - Opiate sparring analgesia. Antispasmodics with Robaxin. (8) PT OT
--- NOTE | 2020-11-19 13:21 | XRAY Report ---
PROCEDURE: Chest 2 View X-Ray INDICATIONS: pneumothorax TECHNIQUE: 2 view(s) of the chest. COMPARISON: None. FINDINGS: Surgical changes and devices: Unchanged appearance. Overall, grossly unchanged appearance of small left apical pneumothorax since yesterday. Mediastinum: Mediastinal contours are normal. Heart size is normal. Bones and chest wall: No suspicious bony abnormalities. Soft tissues appear unremarkable. IMPRESSION: Unchanged examination since yesterday as above. Small residual left apical pneumothorax is grossly st able Reviewed by: Andrae Kat MD on 11/19/2020 1:20 PM PDT Approved by: Andrae Kat MD on 11/19/2020 1:20 PM PDT Station ID: [id number]
[2020-11-19] MEDS: oxyCODONE 5 MG TABLET PO PRN (16:59)
--- NOTE | 2020-11-19 21:50 | Discharge Plan ---
Discharge Plan Problem Reviewed?: Yes Disposition: 01 Home, Self Care Condition: Stable Diet: Regular Shower Restrictions: Yes (no shower until take down dressing tomorrow) Driving Restrictions: Yes (no driving until clinic visit next week) Assistance Devices: Other Weight Bearing: Full Weight Instruction Topics: Pneumothorax Ch, Pneumothorax Health Concerns: 1. Follow-up with primary care within 1 to 2 weeks of discharge. 2. With regard to any loss of consciousness, call or return to ER through the change in sensorium/consciousness. 3. Continue with incentive spirometry and pain management as it relates to the pneumothorax fractures. 4. Any respiratory compromise proceed to the urgent care/ER and/or your primary care for instructions as a relates to shortness of breath or other symptoms. 5. Follow up sugery clinic next week. Plan of Treatment: DISCHARGE INSTRUCTIONS TEMPLATE: Call immediately or go to emergency room for any change in sensorium or fluctuations in consciousness. Use narcotics sparingly. Follow-up with orthopedics for any persistent upper extremity discomfort. Call for any shortness of breath or return to the emergency room for any worrisome symptoms as a relates to respiratory function. No heavy lifting, pushing, or pulling. Stairs are allowed, no strenuous/exert ional activities. 5-10lbs weight carrying limit (i.e. gallon of milk) If provided, abdominal binder while out of bed and while ambulating. Call or proceed to clinic/ER for fevers, severe pain, nausea, vomiting, inability to pass flatus/stool, bleeding, wound redness/discharge, weakness, excessively loose stool/diarrhea, or for any other reasonably worrisome symptom or concern. Soft MECHNICAL diet, no raw vegetables, avoid high fiber foods. Colace 100mg by mouth twice to three times daily while taking narcotic pain medication. If no bowel movement in 24-48hr, may take 17g Miralax in 8oz water twice daily until bowel movement. May shower, no submersive bathing. No driving while taking narcotic pain medications. Follow up with primary care provider and/or medical subspecialist following discharge as well. Assessment: X-ray evaluated by me with no evidence of any residual pneumothorax appears same as previous x-ray on [facility]. This was post pull x-ray with no concerns for contraindication for discharge. 1. Follow-up with primary care within 1 to 2 weeks of discharge. 2. With regard to any loss of consciousness, call or return to ER through the change in sensorium/consciousness. 3. Continue with incentive spirometry and pain management as it relates to the pneumothorax fractures. 4. Any respiratory compromise proceed to the urgent care/ER and/or your primary care for instructions as a relates to shortness of breath or other symptoms. 5. Follow up [facility] clinic next week. Plan of Treatment: DISCHARGE INSTRUCTIONS TEMPLATE: Call immediately or go to emergency room for any change in sensorium or fluctuations in consciousness. Use narcotics sparingly. Follow-up with orthopedics for any persistent upper extremity discomfort. Call for any shortness of breath or return to the emergency room for any worrisome symptoms as a relates to respiratory function. No heavy lifting, pushing, or pulling. Stairs are allowed, no strenuous/exertional activities. 5-10lbs weight carrying limit (i.e. gallon of milk) If provided, abdominal binder while out of bed and while ambulating. Call or proceed to clinic/ER for fevers, severe pain, nausea, vomiting, inability to pass flatus/stool, bleeding, wound redness/discharge, weakness, excessively loose stool/diarrhea, or for any other reasonably worrisome symptom or concern. Soft MECHNICAL diet, no raw vegetables, avoid high fiber foods. Colace 100mg by mouth twice to three times daily while taking narcotic pain medication. If no bowel movement in 24-48hr, may take 17g Miralax in 8oz water twice daily until bowel movement. May shower, no submersive bathing. No driving while taking narcotic pain medications. Follow up with primary care provider and/or medical subspecialist following discharge as well. No Smoking: If you smoke, Please STOP! Call for help. Follow-up with: Yony Armenta MD [Provider Admit Priv/Credential] - 1 Week
[2020-11-19 22:30] VITALS: BP 137/78
--- NOTE | 2020-11-20 08:31 | XRAY Report ---
PROCEDURE: Chest 2 View X-Ray INDICATIONS: post pull x ray TECHNIQUE: 2 view(s) of the chest. COMPARISON: None. FINDINGS: Surgical changes and devices: The previously seen left-sided chest tube has been removed. Lungs and pleura: There is trace residual left apical pneumothorax that has minimal decreased in siz e when compared to the radiographs from earlier the same day. No pleural effusions. Lungs are clear . Mediastinum: Mediastinal contours are normal. Heart size is normal. Bones and chest wall: No suspicious bony abnormalities. Soft tissues appear unremarkable. IMPRESSION: Status post chest tube removal. Trace residual left apical pneumothorax has minimally decreased in si ze when compared to the exam from earlier the same day. Reviewed by: Aakash Casanova MD on 11/20/2020 8:30 AM PDT Approved by: Aakash Casanova MD on 11/20/2020 8:30 AM PDT Station ID: [id number]
--- NOTE | 2020-11-25 20:19 | DISCHARGE SUMMARY ---
"Discharge Summary Admit Date: 11/14/20 Discharge Date: 11/19/20 Discharging Provider: Kathi Code Status: Attempt Resuscitation Condition at Discharge: Stable Discharge Disposition: 01 Home, Self Care - DIAGNOSES Admission Diagnoses: 1. Left pneumothorax 2. History of COPD/Emphysema 3. Smoking history/tobacco abuse Discharge Diagnoses with Status of Each Condition: 1. Left pneumothorax - Resolved 2. History of COPD/Emphysema - Managed 3. Smoking history/tobacco abuse - Counseled - HPI History of Present Illness: 50-year-old male presenting for spontaneous LEFT pneumothorax, symptomatic. Reports having suddenly acute onset shortness of breath at 2 PM yesterday. Has not been able to do anything significant in the interim. Presents to the emergency room for evaluation. No prior episodes. Patient historic smoker however no active tobacco use. No prior chest wall radiation. No recent travel. No recent trauma.. Significant history for multiple cancers including colon cancer in the patient's family history. Notable past surgical history to include none. Patient denies change in bowel function, denies bleeding per rectum, and also denies reflux associated symptoms. Patient does not use tobacco but has used in the past. Patient has a history of alcohol use but denies any associated abuse. He denies CPAP or history of sleep apnea. Denies history of asthma, emphysema, COPD. No history of heart attack or stroke. Patient takes no systemic anticoagulation. Endoscopic history includes colonoscopy at age 41 for high risk screening. The patient was evaluated by the ER noted for plain film with significant loss of lung volume for which surgical consultation was obtained and requested. - CONSULTS | PROCEDURES Consultations: None Procedures: 1. Left tube thoracostomy 2. Left intercostal nerve block - HOSPITAL COURSE Hospital Course: 50-year-old with spontaneous left pneumothorax. Symptomatic. We will proceed with left tube thoracostomy. (1) GI - post procedure will advance diet. GI prophylaxis. Opiate sparing analgesia. (2) SURGERY -proceed with left tube thoracostomy placement. Serial x-rays. (3) Renal/Lytes - continue IVF. Renal indices within normal limits. (4) Respiratory - O2 as necessary. Continue nebulizers. Continue IS. Chest XR. (5) Heme - Will continue with DVT ppx. H/H stable. (6) Cardiovascular - HD acceptable. (7) Neuro - Opiate sparring analgesia. Antispasmodics with Robaxin. Toradol. Neuropathic agents. Patient was admitted with left tube thoracostomy on suction. He had noted air leak. Thus we proceeded slowly with aggressive pulmonary management to include continued supplemental oxygen, nebulizers, and serial plain film x-rays. He ultimately underwent CT scan as per below. Impression CT scan November 15, 2020: 1. Moderate to left large left-sided pneumothorax remains status post chest tube insertion. This most prominent along the inferior aspect. 2. Moderate predominantly centrilobular emphysematous change. 3. Groundglass opacities of the left upper lobe with more focal regions of increased opacity representing atelectasis from partial collapse. Reexpansion pulmonary edema and infectious process within the differential. Patient was attempted for waterseal with lung loss noted on CT scan. Thus the patient was maintained on suction. Patient had serial x-rays which showed small apical pneumothorax. On hospital day 5 the patient was attempted for waterseal again with no significant change in known apical pneumothorax. The patient was maintained on waterseal for overnight without any noted change and thus the patient was pulled for the tube thoracostomy with post pull x-ray reviewed without any recurrent pneumothorax. Just prior to the patient's removal of the chest tube there was no significant air leak appreciated on examination. The patient had bilateral breath sounds auscultated across all lung jeter. The patient was afebrile hemodynamically acceptable. The patient was tolerating oral analgesia. Patient had no other acute complaints. The patient was stable for discharge. The patient was advised and counseled on smoking cessation amongst others. As part of discharge planning the patient was also counseled that should he have any recurrent symptoms or worrisome features to return to the emergency room especially as a relates to his dyspnea or chest pain immediately. - ALLERGIES Allergies/Adverse Reactions: Allergies Allergy/AdvReac Type Severity Reaction Status Date / Time No Known Drug Allergies Allergy Verified 11/14/20 06:56 - MEDICATIONS Home Medications: Ambulatory Orders Medication Instructions Recorded Confirmed No Known Home Medications 11/14/20 11/14/20 - PHYSICAL EXAM AT DISCHARGE Physical Exam Other/Comments: General Appearance: positive: No acute distress Eyes Bilateral: positive: Normal inspection ENT: positive: ENT inspection nml Neck: positive: Nml inspection Respiratory: positive: Chest non-tender, No respiratory distress, Breath sounds nml. negative: Wheezes, Rales, Rhonchi Cardiovascular: positive: Regular rate & rhythm Abdomen: positive: No distention, Other. negative: Guarding, Rebound Extremities: positive: Non-tender, Full ROM, Nml appearance Neurologic/Psychiatric: positive: Oriented x3, CN's nml (2-12) - LABS Result Diagrams: 11/18/20 04:35 11/18/20 04:35 - DIAGNOSTIC IMAGING Diagnostic Imaging Results: Final report reviewed Diagnostic Imaging Results Comments: Impression plain 2 view x-ray of the chest November 19, 2020: 1. Status post chest tube removal. Trace residual left apical pneumothorax has minimally decreased in size when compared to the exam from earlier the same day. - SEPSIS Current Stage of Sepsis: Ruled out - QUALITY (Female Hip Fx Only) Was patient sent home on osteoporosis medication?: No - FOLLOW UP Follow Up: Follow-up in clinic. Patient was advised if he has any worsening symptoms or concerns as relates to respiratory compromise, shortness of breath, or any other worrisome features to proceed to the emergency room immediately. - TIME SPENT Time Spent in Discharge (Minutes): 60"
== END 2020-11-19 22:55 | disposition home or self-care (01) | DRG 201 ==
LOC: ED 06:52 → MS2 11:30
PROVIDERS: ADMIT Surgery; ATTEND Surgery
PROC: 0W9B30Z Drainage of Left Pleural Cavity with Drainage Device, Percutaneous Approach (ICD-10-PCS; principal; 2020-11-14)
DX: J93.11 Primary spontaneous pneumothorax (principal); J43.2 Centrilobular emphysema; Z87.891 Personal history of nicotine dependence
CPT/HCPCS: 0202U; 36415; 71045; 71046; 71260; 80053; 83690; 84484; 85025; 85379; 93005; 96374; 96375; 97161; 99284; 99285; A9270; J0131; J1170; J1650; J2060; Q9967